=== PATIENT | male | born 1975 | race Caucasian/White ===

== ENCOUNTER → 2020-10-29 | Outpatient (CLI) | payer OTHER ==
[~2020-10-29] MED LIST: KEFLEX500 M1 PO; KEFLEX500 MG PO; ULTRAM50 MG PO
--- NOTE | 2020-10-29 14:05 | 2DMMODE ---
[place] [address] 2 D/M-MODE ECHOCARDIOGRAM Name: KIYA KEATING Room: [facility]#: [id number] Admission: 10/29/20 Attend Phys: Jesu Stoll DO Discharge: Date of : 73 Date of Service: 10/29/20 1405 Report #: [id number] THIS REPORT FOR: cc: Jesu Stoll Adam J DO Liston, Michael J. MD MERGED WITH [facility] ~ APPROVED REPORT Study performed: 10/29/2020 11:17:37 EXAM: Comprehensive 2D, Doppler, and color-flow Echocardiogram Patient Location: Out-Patient BSA: 2.13 HR: 76 bpm BP: 118/72 mmHg Other Information Study Quality: Good Indications Post covid Activity intolerance 2D Dimensions IVSd: 8.37 (7-11mm) LVOT Diam: 21.42 (18-24mm) LVDd: 51.16 mm PWd: 6.52 (7-11mm) Ascending Ao: 21.12 (22-36mm) LVDs: 25.13 (25-40mm) Aortic Root: 31.84 mm Volumes Left Atrial Volume (Systole) LA ESV Index: 14.80 mL/m2 Aortic Valve AoV Peak Noah.: 1.05 m/s AO Peak Gr.: 4.42 mmHg LVOT Max P.33 mmHg AO Mean Gr.: 2.58 mmHg LVOT Mean P.11 mmHg LVOT Max V: 0.76 m/s AO V2 VTI: 21.34 cm LVOT Mean V: 0.48 m/s RAFAT (VTI): 2.76 cm2 LVOT V1 VTI: 16.36 cm Mitral Valve E/A Ratio: 1.33 [place] [address] 2 D/M-MODE ECHOCARDIOGRAM Name: KIYA KEATING Room: [facility]#: [id number] Admission: 10/29/20 Attend Phys: Jesu Stoll DO Discharge: Date of : 73 Date of Service: 10/29/20 1405 Report #: [id number] MV Decel. Time: 155.40 ms MV E Max Noah.: 0.59 m/s MV PHT: 45.06 ms MVA (PHT): 4.88 cm2 TDI E/Lateral E': 3.69 E/Medial E': 5.36 Medial E' Noah.: 0.11 m/s Lateral E' Noah.: 0.16 m/s Pulmonary Valve PV Peak Naoh.: 0.87 m/s PV Peak Gr.: 3.03 mmHg Left Ventricle The left ventricle is normal size. There is normal LV segmental wall motion. There is normal left ventricular wall thickness. Left ventricular systolic function is normal. LVEF is 55-60%. The left ventricular diastolic function is normal. Right Ventricle The right ventricle is normal size. The right ventricular systolic function is normal. Atria The left atrium size is normal. The right atrium size is normal. Aortic Valve The aortic valve is normal in structure. No aortic regurgitation is present. There is no aortic valvular stenosis. Mitral Valve The mitral valve is normal in structure. There is no mitral valve regurgitation noted. No evidence of mitral valve stenosis. Tricuspid Valve The tricuspid valve is normal in structure. There is no tricuspid valve regurgitation noted. Pulmonic Valve The pulmonary valve is normal in structure. There is no pulmonic valvular regurgitation. Great Vessels The aortic root is normal in size. IVC is normal in size and collapses >50% [place] [address] 2 D/M-MODE ECHOCARDIOGRAM Name: KIYA KEATING [place] Room: [facility]#: [id number] Admission: 10/29/20 Attend Phys: Jesu Stoll DO Discharge: Date of : 73 Date of Service: 10/29/20 1405 Report #: [id number] Pericardium There is no pericardial effusion. <Conclusion> The left ventricle is normal size. There is normal left ventricular wall thickness. Left ventricular systolic function is normal. LVEF is 55-60%. The left ventricular diastolic function is normal. There is normal LV segmental wall motion. IVC is normal in size and collapses >50% with inspiration. <ELECTRONICALLY SIGNED> By: Newton Aguirre MD, FACC 10/29/20 1405 04 04 Newton Aguirre MD, FACC /INF
--- NOTE | 2020-11-15 08:27 | PF ---
[address] [address] PULMONARY FUNCTION REPORT Name: KIYA KEATING Room: [facility]#: [id number] Admission: 10/29/20 Attend Phys: Jesu Stoll DO Discharge: Date of : 73 Report #: [id number] THIS REPORT FOR: cc: Jesu Stoll, Tee Donovan MD ~ DATE OF VISIT: 10/29/2020 PULMONARY FUNCTION TEST The FEV1/FVC ratio is normal at 81% with an FVC normal at 86%. The FEV1 is also normal at 88%. The FEF 45/75 is normal at 95%. After the administration of a bronchodilator, there is no significant increase in any of these values. The patient's post-bronchodilator FEV1 is 3.95 liters. LUNG VOLUMES: The total lung capacity is normal at 106% with residual volume is increased to 149%. DIFFUSION CAPACITY: The DLCO as adjusted for hemoglobin is normal at 89%. IMPRESSION: 1. Normal spirometry. 2. The total lung capacity is normal on lung volumes, but the residual volume is increased to 149%. This isolated increase in residual volume can occur in patients with obstructive lung disease. Clinical correlation is advised. 3. The DLCO as adjusted for hemoglobin is normal at 89%. <ELECTRONICALLY SIGNED> By: Tee Velasquez MD 11/15/2027 [id number] barrera Prado
== END ==
LOC: M.PUL 10-18 14:21
PROVIDERS: ATTEND Family Medicine
DX: U07.1 COVID-19 (principal); R68.89 Other general symptoms and signs